=== PATIENT | female | born 1990 ===

== ENCOUNTER 2017-09-05 17:33 | Emergency (ER) | payer OTHER ==
[~2017-09-05] VITALS: Ht 162.6 cm; Wt 80.0 kg
[2017-09-05 17:39] VITALS: BP 130/78; PULSE 69; RESP 16; TEMP 98.5; O2SAT 97
--- NOTE | 2017-09-05 19:13 | PD ---
HPI Chief Complaint: Exposure to Blood/Body Fluids Time Seen by Provider: 19:09 Travel History International Travel<30 days: No Contact w/Intl Traveler<30days: No Traveled to known affect area: No History of Present Illness HPI 26-year-old [id number] female presents to the ED for evaluation after needlestick injury to the left thumb. Patient states that she had just finished administering subcutaneous heparin to the source patient, accidentally stuck the needle into her right hand through a clean glove. She states that she squeezed the area to encourage bleeding, went to the sink, washed with hot water and used alcohol before seeking treatment in the ED. on presentation she denies numbness, tingling, weakness, limitations of range of motion of the extremity. She denies risk of . She has no plans to become . PFSH Past Medical History ?: Not LMP: 08/21/17 Social History Tobacco Use: No Allergies-Medications (Allergen,Severity, Reaction): Coded Allergies: No Known Allergies (Unverified , 09/05/17) Reported Meds & Prescriptions Reported Meds & Active Scripts Active No Active Prescriptions or Reported Medications Review of Systems Except as stated in HPI: all other systems reviewed are Neg Physical Exam Narrative GENERAL: Well-nourished, well-developed white female in no acute distress. SKIN: Focused skin assessment warm/dry. Pinpoint wound on the palmar aspect of the right thumb. No active bleeding. No visible foreign body. Mild tenderness to palpation. HEAD: Normocephalic. EYES: No scleral icterus. No injection or drainage. NECK: Supple, trachea midline. No JVD or lymphadenopathy. CARDIOVASCULAR: Regular rate and rhythm without murmurs, gallops, or rubs. RESPIRATORY: Breath sounds equal bilaterally. No accessory muscle use. GASTROINTESTINAL: Abdomen soft, non-tender, nondistended. MUSCULOSKELETAL: No cyanosis, or edema. FOCUSED LEFT UPPER EXTREMITY EXAM: 2+ DP pulse. Patient retains full, active, painless R OM of the extremity. Neurovascularly intact distally. BACK: Nontender without obvious deformity. No CVA tenderness. Data Data Last Documented VS Vital Signs Date Time Temp Pulse Resp B/P (MAP) Pulse Ox O2 Delivery O2 Flow Rate FiO2 09/05/17 17:39 98.5 69 16 130/78 (95) 97 Orders Orders Ed Discharge Order (09/05/17 19:49) [facility] Medical Decision Making Medical Screen Exam Complete: Yes Emergency Medical Condition: Yes Differential Diagnosis Blood-borne exposure versus needlestick injury versus need for PEP versus other Narrative Course 26-year-old female presents to the ED after needlestick injury on the floor. Patient had just finished administering subcutaneous heparin when she accidentally stuck herself through a clean glove on the left pulmonary aspect of the thumb. Vitals reviewed. On exam there is a pinpoint wound in the area but exam otherwise unremarkable. Patient has permission from the source patient for testing. Hepatitis testing was available and is negative. Needlestick exposure protocol was worse. Patient is low risk. I do not recommend prophylactic treatment at this time. Patient is agreeable to this plan. She is stable and discharged home. Diagnosis Primary Impression: Needle stick injury of finger of left hand Qualified Codes: S61.239A - Puncture wound without foreign body of unspecified finger without damage to nail, initial encounter; W27.3XXA - Contact with needle (sewing), initial encounter Additional Instructions: Keep the wound clean and dry. Follow-up with employee health. Return to the ED for worsening symptoms or any urgent or emergent medical condition. Scripts No Active Prescriptions or Reported Meds Disposition: 01 DISCHARGE HOME Condition: Stable America Simons Sep 05, 2017 19:13
== END 2017-09-06 02:10 | disposition home or self-care (01) ==
LOC: NED 17:33
DX: S61.032A Puncture wound without foreign body of left thumb without damage to nail, initial encounter (principal); W46.0XXA Contact with hypodermic needle, initial encounter
CPT/HCPCS: 99281